=== PATIENT | female | born 1985 | race Caucasian/White ===

== ENCOUNTER 2018-03-16 10:44 | Emergency (ER) | payer MEDICAID ==
[2018-03-16 11:07] VITALS: BP 136/85; PULSE 117; RESP 18; TEMP 99.2; O2SAT 97
--- NOTE | 2018-03-16 14:37 | C.PDOC ---
History Of Present Illness 32 year old female patient presents to the ER with c/o facial numbness and pressure for x4 days. Associated symptoms includes dry cough, running nose and sore throat. Patient denies nausea, vomiting, diarrhea, fever and chills. Chief Complaint (Nursing): Flu-like Symptoms History Per: Patient History/Exam Limitations: no limitations Onset/Duration Of Symptoms: Days (x4) Current Symptoms Are (Timing): Still Present Associated Symptoms: Sore Throat, Cough (dry cough ), Sinus Drainage. denies: Fever, Chills, Nausea, Vomiting, Diarrhea Past Medical History Reviewed: Historical Data, Nursing Documentation, Vital Signs Vital Signs: Last Vital Signs Temp 99.2 F 03/16/18 11:05 Pulse 117 H 03/16/18 11:05 Resp 18 03/16/18 11:05 BP 136/85 03/16/18 11:05 Pulse Ox 97 03/16/18 14:46 - [facility] Procedures LOW CERVICAL (03/12/13) Family History: States: No Known Family Hx - Social History Hx Alcohol Use: No Hx Substance Use: No - Immunization History Hx Tetanus Toxoid Vaccination: No Hx Influenza Vaccination: No Hx Pneumococcal Vaccination: No Review Of Systems Except As Marked, All Systems Reviewed And Found Negative. Constitutional: Positive for: Other (pressure and numbness on face). Negative for: Fever, Chills ENT: Positive for: Nose Discharge (clear), Throat Pain Respiratory: Positive for: Cough (dry) Gastrointestinal: Negative for: Nausea, Vomiting, Diarrhea Physical Exam - Physical Exam Appears: Well, Non-toxic, No Acute Distress Skin: Normal Color, Warm, Dry Head: Normacephalic, Tenderness (frontal sinus tenderness) Eye(s): bilateral: Normal Inspection, PERRL, EOMI Ear(s): Bilateral: Normal Nose: Normal Throat: No Exudate, Other (cobble stone ) Neck: Normal ROM, Supple Chest: Symmetrical, No Deformity Cardiovascular: Rhythm Regular Respiratory: Normal Breath Sounds Extremity: Normal ROM (x4) Neurological/Psych: Oriented x3, Normal Speech, Normal Motor, Normal Sensation, Normal Reflexes Gait: Steady ED Course And Treatment O2 Sat by Pulse Oximetry: 97 (RA) Pulse Ox Interpretation: Normal Medical Decision Making Medical Decision Making: Impression: facial numbness and pressure with dry cough, clear rhinorrhea and sore throat Reassess: Patient is resting comfortably. Patient is instructed to f/u with ENT in 1-2 days. Disposition - Disposition Referrals: Thad Clements, [Non-Staff] - Disposition: HOME/ ROUTINE Disposition Time: 11:35 Condition: GOOD Additional Instructions: MARTHA MAURER, thank you for letting us take care of you today. The emergency medical care you received today was directed at your acute symptoms. If you were prescribed any medication, please fill it and take as directed. It may take several days for your symptoms to resolve. Return to the Emergency Department if your symptoms worsen, do not improve, or if you have any other problems. Please contact your doctor or call one of the physicians/clinics you have been referred to that are listed on the Patient Visit Information form that is included in your discharge packet. Bring any paperwork you were given at discharge with you along with any medications you are taking to your follow up visit. Our treatment cannot replace ongoing medical care by a primary care provider outside of the emergency department. Thank you for allowing the [facility] team to be part of your care today. Follow up with your primary care doctor in 2-3 days for re-evaluation and further management. Prescriptions: Amoxicillin/Clavulanate [Augmentin 875 MG-125 MG] 1 tab PO BID #14 tab Instructions: Sinusitis, Adult (DC) Forms: [employer] (Romanian) - Clinical Impression Clinical Impression: Sinusitis - Scribe Statement The provider has reviewed the documentation as recorded by the Scribe Lili Chong Provider Attestation: All medical record entries made by the Scribe were at my direction and personally dictated by me. I have reviewed the chart and agree that the record accurately reflects my personal performance of the history, physical exam, medical decision making, and the department course for this patient. I have also personally directed, reviewed, and agree with the discharge instructions and disposition.
== END 2018-03-16 11:44 | disposition home or self-care (01) ==
LOC: C.ER 10:44
DX: J32.9 Chronic sinusitis, unspecified (principal)